=== PATIENT | male | born 1990 | race Caucasian/White ===

== ENCOUNTER 2024-04-30 10:53 | Emergency (ER) | payer OTHER ==
[~2024-04-30] VITALS: Ht 180.3 cm; Wt 68.0 kg
[2024-04-30] MEDS ORDERED: PREG300C PO (11:21)
[2024-04-30 11:27] VITALS: BP 104/68; TEMP 97.8; O2SAT 98
== END 2024-04-30 11:27 | disposition home or self-care (01) ==
LOC: ER 10:53
DX: R52 Pain, unspecified (principal); Z76.0 Encounter for issue of repeat prescription; Z79.899 Other long term (current) drug therapy; Z91.148 Patient's other noncompliance with medication regimen for other reason; Z60.2 Problems related to living alone
CPT/HCPCS: A4606; A4663